=== PATIENT | female | born 1985 | race American Indian/Alaskan Native ===

== ENCOUNTER 2016-11-09 13:07 | Emergency (ER) | payer SELFPAY ==
[2016-11-09 14:15] LABS: White Blood Count 6.8 K/mm3 (4.5-11.0)
[2016-11-09 14:16] LABS: Basophils % (Auto) 0.7 % (0.0-1.8); Eosinophils % (Auto) 0.8 % (0.0-4.3); Hemoglobin 11.7 gm/dl (10.1-14.3); Mean Corpuscular HGB Conc 33 % (30-34); Mean Corpuscular Hemoglobin 31 pg (28-32); Mean Corpuscular Volume 92 fl (79-97); Platelet Count 210 K/mm3 (140-440); Red Cell Distribution Width 14.8 % (13.2-15.2)
--- NOTE | 2016-11-09 14:33 | Emergency Department Report ---
HPI - General Chief Complaint: Vaginal Bleeding Time Seen by Provider: 11/09/16 14:07 - HPI HPI: Room 10 The patient is a 31-year-old female presenting with a chief complaint of vaginal bleeding. The patient states she took a test at home which was positive approximately 1.5 weeks ago. The patient states for the past 2 weeks she's had intermittent lower abdominal cramping. The patient states for the past 4-5 days she has had 2 episodes light vaginal spotting however today after getting out of the shower vaginal bleeding slightly heavier. The patient states she has not seen an [employer]IDE SAL[employer] TRAINER for this yet Location: [see above] Duration: [see above] Quality: Cramping Severity: Moderate Modifying factors: [see above] Context: [see above] Mode of transportation: [not driving] ED Past Medical Hx - Past Medical History Previous Medical History?: No - Surgical History Past Surgical History?: No - Family History Family history: no significant - Social History Smoking Status: Never Smoker Substance Use Type: None (denies illicit drug use), Alcohol (occasional) - Medications Home Medications: Home Medications Medication Instructions Recorded Confirmed Last Taken Type No Known Home Medications [No 11/09/16 11/09/16 Unknown History Reported Home Medications] ED Review of Systems ROS: Stated complaint: CRAMPING 2WEEKS/ PREG Other details as noted in HPI Comment: All other systems reviewed and negative Constitutional: denies: chills, fever Eyes: denies: eye pain, eye discharge, vision change ENT: denies: ear pain, throat pain Respiratory: denies: cough, shortness of breath, wheezing Cardiovascular: denies: chest pain, palpitations Endocrine: no symptoms reported Gastrointestinal: abdominal pain Genitourinary: abnormal menses Musculoskeletal: denies: back pain, joint swelling, arthralgia Skin: denies: rash, lesions Neurological: denies: headache, weakness, paresthesias Psychiatric: denies: anxiety, depression Hematological/Lymphatic: denies: easy bleeding, easy bruising Physical Exam - Physical Exam Vital Signs: Vital Signs 11/09/16 13:16 Temperature 98.2 F Pulse Rate 99 H Respiratory 17 Rate Blood Pressure 155/98 O2 Sat by Pulse 100 Oximetry Physical Exam: GENERAL: The patient is well-developed well-nourished female sitting on stretcher not appear to be in acute distress. [] HEENT: Normocephalic. Atraumatic. Extraocular motions are intact. Patient has moist mucous membranes. NECK: Supple. Trachea midline CHEST/LUNGS: Clear to auscultation. There is no respiratory distress noted. HEART/CARDIOVASCULAR: Regular. There is no tachycardia. There is no gallop rub or murmur. ABDOMEN: Abdomen is soft, with mild discomfort to palpation in the left lower quadrant. Patient has normal bowel sounds. There is no abdominal distention. SKIN: There is no rash. There is no edema. There is no diaphoresis. NEURO: The patient is awake, alert, and oriented. The patient is cooperative. The patient has normal speech MUSCULOSKELETAL: There is no evidence of acute injury. ED Course Vital Signs 11/09/16 13:16 Temperature 98.2 F Pulse Rate 99 H Respiratory 17 Rate Blood Pressure 155/98 O2 Sat by Pulse 100 Oximetry ED Medical Decision Making - Lab Data Result diagrams: 11/09/16 13:49 Laboratory Tests 11/09/16 11/09/16 11/09/16 13:41 13:49 13:49 WBC 6.8 RBC 3.80 Hgb 11.7 Hct 35.0 MCV 92 MCH 31 MCHC 33 RDW 14.8 Plt Count 210 Lymph % (Auto) 20.7 [place] % (Auto) 10.2 H Eos % (Auto) 0.8 Baso % (Auto) 0.7 Lymph # 1.4 [place] # 0.7 Eos # 0.1 Baso # 0.0 Seg Neutrophils % 67.6 Seg Neutrophils # 4.6 HCG, Quant 181.6 H Urine Color Red Urine Turbidity Clear Urine pH 6.0 Ur Specific Backus 1.020 Urine Protein 100 mg/dl Urine Glucose (UA) Neg Urine Ketones Neg Urine Blood Lg Urine Nitrite Neg Urine Bilirubin Neg Urine Urobilinogen < 2.0 Ur Leukocyte Esterase Sm Urine WBC (Auto) 7.0 H Urine RBC (Auto) > 182.0 U Epithel Cells (Auto) 10.0 Urine Mucus 3+ Blood Type Ord Rhogam Gestat Weeks 11/09/16 13:49 WBC RBC Hgb Hct MCV MCH MCHC RDW Plt Count Lymph % (Auto) [place] % (Auto) Eos % (Auto) Baso % (Auto) Lymph # [place] # Eos # Baso # Seg Neutrophils % Seg Neutrophils # HCG, Quant Urine Color Urine Turbidity Urine pH Ur Specific Backus Urine Protein Urine Glucose (UA) Urine Ketones Urine Blood Urine Nitrite Urine Bilirubin Urine Urobilinogen Ur Leukocyte Esterase Urine WBC (Auto) Urine RBC (Auto) U Epithel Cells (Auto) Urine Mucus Blood Type O POSITIVE Ord Rhogam Gestat Weeks Rh pos - Radiology Data Radiology results: report reviewed (pelvic ultrasound), image reviewed (pelvic ultrasound) Pelvic ultrasound (read by radiologist)-gestational sac is not identified with certainty in the uterus or elsewhere in the images provided. Possibility of ectopic is not excluded. The patient can be further assessed with serial monitoring a beta hCG and repeat ultrasound if indicated. Small amount low-density free fluid seen in the dependent portion of the pelvis. This is a nonspecific finding. It may be physiologic. - Differential Diagnosis threatened , spontaneous , inevitable , ectopic pre Critical care attestation.: If time is entered above; I have spent that time in minutes in the direct care of this critically ill patient, excluding procedure time. ED Disposition Clinical Impression: Threatened Disposition: DC- TO HOME OR SELFCARE Is pt being admited?: No Does the pt Need Aspirin: No Condition: Stable Instructions: Threatened Miscarriage (ED), Ectopic (ED) Additional Instructions: Today you're serum hCG was 181.6 mIU/mL. You should return to the emergency department or follow-up with your [employer] SALES TRAINER in 48 hours to have this level rechecked. Return to the emergency department immediately should you develop worsening symptoms, fever, inability to tolerate food or liquid or any other concerns. Referrals: JULI MATTHEWS MD [Staff Physician] - 11/11/16 (Dr. Matthews is an [employer]IDE SALES TRA[employer]ER. Please follow up with him for further evaluation) Time of Disposition: 16:51
[2016-11-09 15:00] LABS: Bilirubin,Urine NEG (Negative); Blood,Urine LG (Negative); Ketones,Urine NEG (Negative); Leukocyte Esterase,Urine SM (Negative); Mucus,Urine 3+ /HPF; Nitrite,Urine NEG (Negative); RBC,Urine > 182.0 /HPF (0.0-6.0); Urobilinogen,Urine < 2.0 mg/dL (<2.0)
[2016-11-09 16:10] VITALS: BP 138/88
--- NOTE | 2016-11-09 16:20 | Ultrasound Report ---
FINAL REPORT EXAM: US OB TRANSVAGINAL HISTORY: vaginal bleeding, lower abdominal pain TECHNIQUE: Endovaginal ultrasound was performed in multiple grayscale sonographic images were obtained of the uterus and adnexa PRIORS: Transabdominal pelvic ultrasound from 11/09/2016 FINDINGS: Small amount of free fluid is noted in the dependent portion of the pelvis. The endometrial stripe thickness is approximately 8.1 millimeters. A gestational sac is not identified with certainty in the uterus or elsewhere in the images provided. Right ovary measures approximately 2.6 x 2 x 2.9 centimeters. Left ovary measures approximately 2.7 x 2.2 x 2.5 centimeters. IMPRESSION: 1. Gestational sac is not identified in the uterus or elsewhere in the images provided. Possibility of ectopic is not excluded. The patient can be further assessed with serial quantitative beta HCG and repeat ultrasound if indicated. 2. Small amount of low-density free fluid is seen in the dependent portion of the pelvis. This is a nonspecific finding. It may be physiologic.
--- NOTE | 2016-11-09 16:23 | Ultrasound Report ---
FINAL REPORT EXAM: US OB \T\lt; = 14 WEEKS FETUS HISTORY: vaginal bleeding, lower abdominal pain TECHNIQUE: Transabdominal ultrasound was performed in multiple grayscale sonographic images were obtained of the uterus and adnexa PRIORS: Endovaginal ultrasoundfrom 11/09/2016 FINDINGS: Uterus measures approximately 9.1 x 3.6 x 5 centimeters. Gestational sac is not identified in the uterus or elsewhere in the images provided. Small amount of free fluid is seen in the dependent portion of the pelvis. Right ovary measures approximately 3.6 x 2.2 x 3.5 centimeters. There is a 12 millimeter follicle noted. Left ovary measures approximately 2.5 x 2 x 2 centimeters. IMPRESSION: 1. Gestational sac is not identified with certainty in the uterus or elsewhere in the images provided. Possibility of ectopic is not excluded. The patient can be further assessed with serial quantitative beta HCG and repeat ultrasound if indicated. 2. Small amount of low-density free fluid is seen in the dependent portion of the pelvis. This is a nonspecific finding. It may be physiologic. 3. Please refer to report from endovaginal ultrasound from 11/09/2016 for additional information.
== END 2016-11-09 18:50 | disposition home or self-care (01) ==
LOC: ED 13:07
DX: O20.0 Threatened abortion (principal)
CPT/HCPCS: 36415; 76801; 76817; 81001; 84702; 85025; 86900; 86901

== ENCOUNTER 2016-11-11 20:29 | Emergency (ER) | payer OTHER ==
[2016-11-11 22:06] VITALS: BP 134/86
--- NOTE | 2016-11-12 05:13 | Emergency Department Report ---
ED General Adult HPI - General Chief complaint: Urogenital-Female Stated complaint: ABD PAIN Source: patient Mode of arrival: Ambulatory Limitations: No Limitations - History of Present Illness Initial comments: 31 year old female presents to ED for recheck of HCG levels. patient was previously here in ED 48 hours ago with HCG of 181. patient states her previous episodes of abdominal pain and vaginal bleeding have both decreased in nature over the past 48 hours. patient is stable, neurologically intact and in no acute distress. -: Gradual Radiation: non-radiation Severity scale (0 -10): 0 Consistency: now resolved Associated Symptoms: denies other symptoms - Related Data Home Medications Medication Instructions Recorded Confirmed Last Taken No Known Home Medications [No 11/09/16 11/09/16 Unknown Reported Home Medications] Allergies Allergy/AdvReac Type Severity Reaction Status Date / Time No Known Allergies Allergy Unverified 11/09/16 13:14 ED Review of Systems ROS: Stated complaint: ABD PAIN Other details as noted in HPI Constitutional: denies: chills, fever Eyes: denies: eye pain, eye discharge, vision change ENT: denies: ear pain, throat pain Respiratory: denies: cough, shortness of breath, wheezing Cardiovascular: denies: chest pain, palpitations Endocrine: no symptoms reported Gastrointestinal: denies: abdominal pain, nausea, vomiting, diarrhea Genitourinary: denies: urgency, dysuria, discharge Musculoskeletal: denies: back pain, joint swelling, arthralgia Skin: denies: rash, lesions Neurological: denies: headache, weakness, paresthesias Psychiatric: denies: anxiety, depression Hematological/Lymphatic: denies: easy bleeding, easy bruising ED Past Medical Hx - Past Medical History Previous Medical History?: No - Surgical History Past Surgical History?: No - Social History Smoking Status: Never Smoker Substance Use Type: Alcohol - Medications Home Medications: Home Medications Medication Instructions Recorded Confirmed Last Taken Type No Known Home Medications [No 11/09/16 11/09/16 Unknown History Reported Home Medications] ED Physical Exam - General Limitations: No Limitations General appearance: alert, in no apparent distress - Head Head exam: Present: atraumatic, normocephalic - Eye Eye exam: Present: normal appearance, EOMI - ENT ENT exam: Present: mucous membranes moist - Neck Neck exam: Present: normal inspection - Respiratory Respiratory exam: Present: normal lung sounds bilaterally. Absent: respiratory distress, wheezes - Cardiovascular Cardiovascular Exam: Present: regular rate, normal rhythm. Absent: systolic murmur, diastolic murmur, rubs, gallop - GI/Abdominal GI/Abdominal exam: Present: soft, normal bowel sounds. Absent: distended, tenderness, guarding, rebound, rigid, mass - Extremities Exam Extremities exam: Present: normal inspection, full ROM - Back Exam Back exam: Present: normal inspection, full ROM - Neurological Exam Neurological exam: Present: alert, oriented X3, normal gait - Psychiatric Psychiatric exam: Present: normal affect, normal mood - Skin Skin exam: Present: warm, dry, intact, normal color. Absent: rash ED Course Vital Signs 11/11/16 22:01 Temperature 98.0 F Pulse Rate 80 Respiratory 16 Rate Blood Pressure 134/86 O2 Sat by Pulse 100 Oximetry ED Medical Decision Making - Lab Data Result diagrams: 11/12/16 04:42 Lab Results 11/11/16 11/12/16 Range/Units 23:07 04:42 WBC 7.2 (4.5-11.0) K/mm3 RBC 3.69 (3.65-5.03) M/mm3 Hgb 11.2 (10.1-14.3) gm/dl Hct 35.0 (30.3-42.9) % MCV 95 (79-97) fl MCH 31 (28-32) pg MCHC 32 (30-34) % RDW 15.1 (13.2-15.2) % Plt Count 203 (140-440) K/mm3 Lymph % (Auto) 29.9 (13.4-35.0) % [place] % (Auto) 9.7 H (0.0-7.3) % Eos % (Auto) 1.6 (0.0-4.3) % Baso % (Auto) 0.5 (0.0-1.8) % Lymph # 2.2 (1.2-5.4) K/mm3 [place] # 0.7 (0.0-0.8) K/mm3 Eos # 0.1 (0.0-0.4) K/mm3 Baso # 0.0 (0.0-0.1) K/mm3 Seg Neutrophils % 58.3 (40.0-70.0) % Seg Neutrophils # 4.2 (1.8-7.7) K/mm3 HCG, Quant 51.65 H (0-4) mIU/mL - Medical Decision Making 31 year old female presents to ED for HCG recheck. patient HCG level have dropped from 181 to 51 over the past 48 hours. patient had ultrasound 48 hours ago which showed no IUP. patient agrees and understands to return to ED in 48 hours for another HCG recheck and to return to ED immediately if there is any developing fever, dizziness, syncope, chest pain, abdominal pain, pelvic pain, heavy/increasing vaginal bleeding. patient has no tenderness to abdominal palpation on exam today during ED visit. patient is stable, neurologically intact and in no acute distress. patient is RH positive for previous labs 48 hours ago. Critical care attestation.: If time is entered above; I have spent that time in minutes in the direct care of this critically ill patient, excluding procedure time. ED Disposition Clinical Impression: Threatened Disposition: DC-01 TO HOME OR SELFCARE Is pt being admited?: No Does the pt Need Aspirin: No Condition: Stable Additional Instructions: Please return to ED in 48 hours for HCG recheck. Referrals: PRIMARY CARE [Primary Care Provider] - 3-5 Days Forms: Work/School Release Form(ED)
[2016-11-12 05:14] LABS: Basophils % (Auto) 0.5 % (0.0-1.8); Eosinophils % (Auto) 1.6 % (0.0-4.3); Hemoglobin 11.2 gm/dl (10.1-14.3); Mean Corpuscular HGB Conc 32 % (30-34); Mean Corpuscular Hemoglobin 31 pg (28-32); Mean Corpuscular Volume 95 fl (79-97); Platelet Count 203 K/mm3 (140-440); Red Blood Count 3.69 M/mm3 (3.65-5.03); Red Cell Distribution Width 15.1 % (13.2-15.2); White Blood Count 7.2 K/mm3 (4.5-11.0)
== END 2016-11-12 04:56 | disposition home or self-care (01) ==
LOC: ED 20:29
DX: O20.0 Threatened abortion (principal); Z3A.00 Weeks of gestation of pregnancy not specified
CPT/HCPCS: 36415; 84702; 85025; 99283